=== PATIENT | male | born 1995 ===

== ENCOUNTER 2017-07-01 23:11 | Emergency (ER) | payer BC ==
[2017-07-01] MEDS ORDERED: NS 0.9% 1000 ML* 2,000 ML IV ONE (23:57)
[2017-07-02] MEDS ORDERED: Ondansetron INJ* 2 MG/ML VIAL IV ONE (00:02)
[2017-07-02] MEDS ORDERED: Ondansetron INJ* 2 MG/ML VIAL ONE (00:05)
[2017-07-02 00:18] LABS: Hematocrit 49 % (42-52); Hemoglobin 16.4 g/dl (14.0-18.0); Mean Corpuscular HGB Conc 34 g/dl (31-36); Mean Corpuscular Hemoglobin 31 pg (27-31); Mean Corpuscular Volume 93 fL (80-94); Mean Platelet Volume 8 um3 (7.4-10.4); Red Blood Count 5.21 10^6/ul (4.0-5.4); Red Cell Distribution Width 12 % (10.5-15); White Blood Count 8.5 10^3/ul (3.5-10.8)
--- NOTE | 2017-07-02 00:32 | ED ---
Substance Abuse/Use - HPI Summary HPI Summary: 22 male presents to ED brought in by friends due to being intoxicated. Patient states he drank "a 1 liter handle of vanessa's vodka beginning at 9:00pm tonight". Patient is a [employer] student. Has been vomiting. Denies LOC or passing out. No trauma or hitting head. Denies any other drug use. Friends were taking care of patient all night, and present during evaluation. Patient is alert and oriented. Denies any pain or symptoms other than nausea at this time. States he drinks alcohol frequently "and asians do not metabolize their liquor well". Denies difficulty breathing and chest pain. States he takes Humira for psoriasis. Denies any other medications or PMHx. No other complaints at this time. No intention for self harm, "was just trying to have a good monday night ". Patient drinks alcohol occasionally. - History Of Current Complaint Chief Complaint: EDSubstanceAbuse Stated Complaint: ETOH Time Seen by Provider: 07/01/17 23:57 Hx Obtained From: Patient, Family/Human Capital Manager - friends Onset/Duration of Drug/ETOH Abuse: Hours - since 9pm 07/01/17 Ingestion History: Type/Name Of Drug - vanessa's vodka, Amount Ingested - "1 liter " Overdose Characteristics: Oral Timing Of Abuse: Binge Use Severity Initially: Moderate Severity Currently: Moderate Aggravating Factor(s): Nothing Alleviating Factor(s): Nothing Associated Signs And Symptoms: Nausea, Vomiting, Intentional Ingestion Related Hx: Drug/Alcohol 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 - Allergies/Home Medications Allergies/Adverse Reactions: Allergies Allergy/AdvReac Type Severity Reaction Status Date / Time No Known Allergies Allergy Verified 06/12/15 00:41 PMH/Surg Hx/FS Hx/Imm Hx Endocrine/Hematology History: Reports: Other Endocrine/Hematological Disorders - psoriasis Denies: Hx Diabetes Cardiovascular History: Denies: Hx Hypertension Respiratory History: Denies: Hx Asthma - Surgical History Surgery Procedure, Year, and Place: n/a - Immunization History Date of Tetanus Vaccine: assumed utd Immunizations Up to Date: Yes Infectious Disease History: No Infectious Disease History: Denies: Traveled Outside the [place] in Last 30 Days - Family History Known Family History: Positive: None - Social History Alcohol Use: Occasionally Substance Use Type: Reports: None Smoking Status (MU): Never Smoked Tobacco Review of Systems Constitutional: Negative Cardiovascular: Negative Respiratory: Negative Positive: Vomiting, Nausea Skin: Negative Neurological: Negative All Other Systems Reviewed And Are Negative: Yes Physical Exam Triage Information Reviewed: Yes Vital Signs On Initial Exam: Initial Vitals Temp Pulse Resp BP Pulse Ox 98.9 F 103 22 127/72 99 07/01/17 23:15 07/01/17 23:15 07/01/17 23:15 07/01/17 23:15 07/01/17 23:15 Vital Signs Reviewed: Yes Appearance: Positive: Well-Appearing, No Pain Distress, Well-Nourished Skin: Positive: Warm, Skin Color Reflects Adequate Perfusion, Dry, Erythema @ - of cheeks b/l, facial erythema, patient states he is typically red when drinking Head/Face: Positive: Normal Head/Face Inspection Eyes: Positive: EOMI, GRACIELA, Conjunctiva Clear ENT: Positive: Normal ENT inspection, Hearing grossly normal, Pharynx normal, TMs normal Neck: Positive: Supple, Nontender, No Lymphadenopathy Respiratory/Lung Sounds: Positive: Clear to Auscultation, Breath Sounds Present. Negative: Decreased Breath Sounds, Rales, Rhonchi, Wheezes Cardiovascular: Positive: Normal, RRR, Pulses are Symmetrical in both Upper and Lower Extremities. Negative: Murmur, Rub Abdomen Description: Positive: Nontender, Soft Bowel Sounds: Positive: Present Musculoskeletal: Positive: Normal, Strength/ROM Intact Neurological: Positive: Normal, Sensory/Motor Intact, Alert, Oriented to Person Place, Time - Gayla Coma Scale Best Eye Response: 4 - Spontaneous Best Motor Response: 6 - Obeys Commands Best Verbal Response: 5 - Oriented Coma Scale Total: 15 Diagnostics - Vital Signs Vital Signs Temp Pulse Resp BP Pulse Ox 07/01/17 23:15 98.7 F 106 22 127/72 100 - Laboratory Result Diagrams: 07/02/17 00:00 07/02/17 00:00 Lab Statement: Any lab studies that have been ordered have been reviewed, and results considered in the medical decision making process. Course/Dx - Course Course Of Treatment: labs obtained. alcohol level, urinalysis and drug screen. alcohol level was 168 given fluids and zofran. patient had relief. labs otherwise unremarkable. continuous telemetry. patient was signed out to Dr Graham at shift 2:30am change until patient becomes sober in the morning. - Diagnoses Differential Diagnosis/HQI/PQRI: Positive: Alcohol Abuse Provider Diagnoses: Alcohol abuse, Acute alcohol intoxication - Physician Notifications Discussed Care Of Patient With: Dr Graham signed out at shift change Time Discussed With Above Provider: 14:30 Discharge - Discharge Plan Condition: Stable Disposition: OTHER Discharge Disposition Comment: Signed out to Dr Graham at shift change Referrals: [facility] - [facility]OW [Primary Care Provider] -
[2017-07-02 00:36] LABS: Albumin 4.8 g/dL (3.2-5.2); BUN/Creatinine Ratio 13.7 (8-20); Calcium 9.7 mg/dL (8.6-10.3); EGFR Non-African American 101.1 (>60); Globulin 2.6 g/dL (2-4); Potassium 3.4 mmol/L (3.5-5.0); Total Bilirubin 0.5 mg/dL (0.2-1.0); Total Protein 7.4 g/dL (6.4-8.9)
--- NOTE | 2017-07-02 05:36 | ED ---
Angelito Wilson Alfonso, scribed for John Graham MD on 07/02/17 at 0535 . Progress - Progress Note Progress Note: This patient was signed out from Lorenzo AGUILAR, pending disposition, awaiting reevaluation. Reevaluation at 0526: Patient is clinical sober. Normal gait. Neurologically intact. The patients condition is stable and he will be discharged to home with Dx of Acute alcohol intoxication. Course/Dx - Diagnoses Provider Diagnoses: Acute alcohol intoxication The documentation as recorded by the Angelito suarez Alfonso accurately reflects the service I personally performed and the decisions made by Gladys ryan Dong, MD.
[2017-07-02 06:11] VITALS: BP 108/49
== END 2017-07-02 06:12 | disposition home or self-care (01) ==
LOC: ED 23:11
DX: F10.129 Alcohol abuse with intoxication, unspecified (principal)
CPT/HCPCS: 36415; 80053; 80320; 85025; 96374; 96375; 99283; G0480; J2405